=== PATIENT | female | born 1975 | race Caucasian/White ===

== ENCOUNTER → 2020-01-19 09:31 | Outpatient (BNVA) | payer OTHER, SELFPAY | PROVIDERS: Family Provider Nurse Practitioner Family; Visit Provider Nurse Practitioner | DX: F43.12 Post-traumatic stress disorder, chronic (principal) | CPT/HCPCS: 99214 ==

== ENCOUNTER → 2020-04-09 07:38 | Outpatient (BNVA) | payer OTHER, SELFPAY | PROVIDERS: Visit Provider Nurse Practitioner | DX: F43.12 Post-traumatic stress disorder, chronic (principal) | CPT/HCPCS: 99213 ==

== ENCOUNTER → 2020-07-04 09:24 | Outpatient (BNVA) | payer OTHER, SELFPAY | PROVIDERS: Visit Provider Nurse Practitioner | DX: F43.12 Post-traumatic stress disorder, chronic (principal) | CPT/HCPCS: 99213 ==

== ENCOUNTER 2020-08-06 14:54 | Outpatient (CLI) | payer OTHER, SELFPAY ==
--- NOTE | 2020-08-06 15:03 | MM_ITS ---
WS: [id number] BILATERAL SCREENING DIGITAL MAMMOGRAM WITH CAD HISTORY: SCREENING COMPARISON: 07/01/2019, 04/22/2018 Bilateral CC and MLO views submitted. Computer aided detection analyzed. Breast composition: The breasts are heterogeneously dense, which may obscure small masses. No suspici ous masses, microcalcifications or architectural distortion. Soft tissue mass posterior to the LEFT n ipple has been present on multiple prior examinations. No increase in size. No architectural distorti on. MM/[place] [id number] IMPRESSION: BI-RADS: 2-Benign FOLLOW UP: 1 Year Follow-up
== END 2020-08-06 14:55 | disposition home or self-care (01) ==
LOC: RADSHAW 15:00
PROVIDERS: PCP Nurse Practitioner Family; Visit Provider Nurse Practitioner Family
DX: Z12.31 Encounter for screening mammogram for malignant neoplasm of breast (principal)
CPT/HCPCS: 77067

== ENCOUNTER → 2020-10-02 08:00 | Outpatient (BNVA) | payer OTHER, SELFPAY | PROVIDERS: PCP Nurse Practitioner Family; Visit Provider Nurse Practitioner | DX: F43.12 Post-traumatic stress disorder, chronic (principal) | CPT/HCPCS: 99213 ==

== ENCOUNTER → 2020-12-27 09:03 | Outpatient (BNVA) | payer OTHER, SELFPAY | PROVIDERS: PCP Nurse Practitioner Family; Visit Provider Nurse Practitioner | DX: F43.12 Post-traumatic stress disorder, chronic (principal) | CPT/HCPCS: 99214 ==

== ENCOUNTER → 2021-03-21 08:17 | Outpatient (BNVA) | payer OTHER, SELFPAY | PROVIDERS: PCP Nurse Practitioner Family; Visit Provider Nurse Practitioner | DX: F43.12 Post-traumatic stress disorder, chronic (principal) | CPT/HCPCS: 99214 ==

== ENCOUNTER 2021-10-11 08:53 | Outpatient (CLI) | payer OTHER, SELFPAY ==
--- NOTE | 2021-10-11 09:03 | MM_ITS ---
WS: [id number] Bilateral screening digital mammogram, 10/11/2021 Clinical Data: SCREENING Comparison: 08/06/2020, 07/01/2019, 04/22/2018. Findings: The breast parenchymal pattern shows heterogeneous density. No spiculated masses or clustered calcifi cations are seen. There are no secondary signs of carcinoma. There are mole markers on the left breas t. MM/[place] [id number] Impression: 1. Negative bilateral mammogram unchanged. 2. Recommend annual screening mammograms. BIRADS: 1-Negative FOLLOW UP: 1 Year Follow-up The CAD die drawing checker was used.
== END 2021-10-11 08:54 | disposition home or self-care (01) ==
LOC: RADSHAW 08:59
PROVIDERS: PCP Nurse Practitioner Family; Visit Provider Nurse Practitioner Family
DX: Z12.31 Encounter for screening mammogram for malignant neoplasm of breast (principal)
CPT/HCPCS: 77067

== ENCOUNTER 2022-12-11 07:33 | Outpatient (CLI) | payer OTHER, SELFPAY ==
--- NOTE | 2022-12-11 07:50 | MM_ITS ---
WS: [id number] BILATERAL SCREENING DIGITAL TOMOSYNTHESIS MAMMOGRAM WITH CAD HISTORY: SCREENING COMPARISON: 04/22/2018, 11/06/2019, 10/11/2021 Bilateral CC and MLO views with tomosynthesis and synthetic mammography submitted. Computer aided det ection analyzed. Breast composition: The breasts are heterogeneously dense, which may obscure small masses. No suspici ous masses, microcalcifications or architectural distortion. Long-term stable mass at the 6:00 axis i n the anterior breast measures 7 mm. MM/[place] [id number] IMPRESSION: BI-RADS: 2-Benign FOLLOW UP: 1 Year Follow-up
== END 2022-12-11 07:34 | disposition home or self-care (01) ==
PROVIDERS: PCP Nurse Practitioner Family; Visit Provider Nurse Practitioner Family
DX: Z12.31 Encounter for screening mammogram for malignant neoplasm of breast (principal)
CPT/HCPCS: 77063; 77067

== ENCOUNTER 2023-12-24 07:43 | Outpatient (CLI) | payer OTHER, SELFPAY ==
--- NOTE | 2023-12-24 08:36 | MM_ITS ---
WS: [id number] BILATERAL SCREENING DIGITAL TOMOSYNTHESIS MAMMOGRAM WITH CAD HISTORY: SCREENING COMPARISON: 12/11/2022, 08/06/2020, 10/11/2021 Bilateral CC and MLO views with tomosynthesis and synthetic mammography submitted. Computer aided det ection analyzed. Breast composition: The breasts are heterogeneously dense, which may obscure small masses. No suspici ous masses, microcalcifications or architectural distortion. Well-circumscribed mass posterior to the LEFT nipple measures 7 mm. Similar to prior studies. No new or increasing size of any mass. No calci fication. IMPRESSION: MM/[place] [id number] BI-RADS: 2-Benign FOLLOW UP: 1 Year Follow-up
== END 2023-12-24 07:44 | disposition home or self-care (01) ==
LOC: RAD 07:44
PROVIDERS: PCP Nurse Practitioner Family; Visit Provider Nurse Practitioner Family
DX: Z12.31 Encounter for screening mammogram for malignant neoplasm of breast (principal)
CPT/HCPCS: 77063; 77067

== ENCOUNTER 2024-07-04 11:25 | Emergency (ER) | payer OTHER, SELFPAY ==
--- NOTE | 2024-07-04 11:31 | ECG_ITS ---
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 Measurements Intervals [place] Rate: 86 P: 72 [place]: 148 QRS: 78 QRSD: 87 T: 80 QT: 391 QTc: 468 Interpretive Statements SINUS RHYTHM POSSIBLE LEFT ATRIAL ENLARGEMENT [-0.1mV P-WAVE IN V1/V2] No previous ECG available for comparison Electronically Signed On 07-05-2024 7:44:40 CDT by Maicol Atkinson M.D. [id number] f
[2024-07-04 11:33] VITALS: BP 130/85; PULSE 83; TEMP 36.6; O2SAT 96; BMI 22.6
--- NOTE | 2024-07-04 11:43 | XR_ITS ---
WS: [id number] XR chest 1V portable [id number] REASON FOR EXAM: cp FINDINGS: Chest is unchanged compared to 08/17/2012. The heart and mediastinum are within normal limits. Calcified granulomas disease bilaterally. No acute pulmonary parenchymal or pleural abnormality. Bony thorax is intact without significant abnormality. XR/XR chest 1V portable [id number] IMPRESSION: Stable chest without acute abnormality.
--- NOTE | 2024-07-04 12:08 | W.ED.CHESTPA ---
HPI - Chest Pain General: Chief Complaint: Chest Pain Stated Complaint: chest pains and sob Time Seen by Provider: 07/04/24 12:06 History of Present Illness: 49-year-old female presents emergency room clinic chest pain shortness of breath began last night. Presents today epigastric left lower chest region. She has been having chest pain on little higher up she definitely seen . They thought it might be something related to her breast and scheduled mammogram. This seems a little bit different does radiate into her back. She denies any history of reflux she previously had as an appetite back to me but no other abdominal issues or previous abdominal surgeries no hematochezia melena hematemesis coffee-ground emesis Associated symptoms: Reports dyspnea; Deny abdominal pain or fever(s) Related Data Home Medications Medication Instructions Recorded Confirmed solifenacin 5 mg tablet 5 mg PO DAILY 03/17/24 07/04/24 ergocalciferol (vitamin D2) 1,250 1,250 mcg PO Q7D 07/04/24 07/04/24 mcg (50,000 unit) capsule mirtazapine 45 mg tablet 45 mg PO BEDTIME 07/04/24 07/04/24 oxybutynin chloride 10 mg 10 mg PO BID 07/04/24 07/04/24 tablet,extended release 24 hr Previous Rx's Medication Instructions Recorded bupropion HCl 300 mg 24 hr tablet, 300 mg PO QAM #30 tabs 03/17/24 extended release (Wellbutrin XL) pantoprazole 40 mg tablet,delayed 40 mg PO BID 30 days #60 tabs 07/04/24 release (Protonix) Allergies Allergy/AdvReac Type Severity Reaction Status Date / Time diphenhydramine Allergy rash Verified 07/04/24 11:37 [From Triaminic Allergy] latex Allergy ALGY-Rash Verified 07/04/24 11:37 Review of Systems Const: Denies: fever(s) or chills Card: Reports: chest pain Resp: Reports: dyspnea GI: Denies: abdominal pain : Denies: dysuria, urinary frequency or urinary urgency Musc: Denies: neck pain or back pain Skin/Breast: Denies: rash PFSH ED PFSH: Medical History Psychiatric care Post-traumatic stress disorder, chronic Social History Smoking and tobacco/nicotine status: former use of tobacco/nicotine Physical Exam Const: COMMON NORMALS: no acute distress GENERAL APPEARANCE: cooperative and comfortable ORIENTATION/CONSCIOUSNESS: Yes awake, Yes oriented to person, Yes oriented to place and Yes oriented to time HENMT: COMMON NORMALS: normocephalic, atraumatic and hearing grossly normal bilaterally HEAD & SCALP: normocephalic and atraumatic Resp: COMMON NORMALS: normal respiratory effort, No retractions, No use of accessory muscles and clear to auscultation bilaterally AUSCULTATION: clear to auscultation bilaterally Cardio: COMMON NORMALS: regular rate, regular rhythm and No murmurs present (Cardio) RATE: regular rate RHYTHM: regular rhythm GI: COMMON NORMALS: Soft to palpation and No hepatosplenomegaly present AUSCULTATION: Yes normoactive bowel sounds PALPATION: Yes Soft to palpation, No Tenderness to palpation present (GI), No Guarding due to palpation present (GI) and Yes No hepatosplenomegaly present Extremity: COMMON NORMALS: normal to inspection, capillary refill normal, no clubbing, cyanosis or edema, no calf tenderness and no pedal edema Neuro: SENSORIUM/ORIENTATION: Yes oriented to person, Yes oriented to place and Yes oriented to time Skin: COMMON NORMALS: no rashes or lesions noted GENERAL SKIN EXAM: no rashes or lesions noted Course Vital Signs: Vital signs: Vital Signs Temperature 97.8 F 07/04/24 11:33 Pulse Rate 67 07/04/24 16:42 Blood Pressure 99/59 07/04/24 16:42 Pulse Oximetry 98 07/04/24 16:42 Oxygen Delivery Me thod Room Air 07/04/24 15:57 MDM - Chest Pain Medical Decision Making Cardiac enzymes are negative. EKG is unremarkable no acute changes CTA of the chest did not show any pneumothorax pneumonia pulmonary embolism aortic aneurysm. Discharge patient home CT did show a hiatal hernia I think she is getting reflux esophageal spasm causing her pain started on Protonix 40 twice daily for a week and then 40 daily have her follow-up with primary care doctor if has persistent symptoms may need referral for EGD Medical Records I reviewed the patient's medical records. Lab Data I reviewed the patient's lab results. 07/04/24 12:01 07/04/24 12:01 Radiology Impressions Chest X-Ray 07/04/24 11:43 IMPRESSION: Stable chest without acute abnormality. Chest CTA 07/04/24 15:16 IMPRESSION: 1. No evidence of pulmonary embolism. 2. No acute findings in the chest. 3. Patulous esophagus with a small hiatal hernia. Findings can be seen with gastroesophageal reflux and/or esophageal dysmotility. Laboratory Results WBC 9.38 10^3/uL (3.29-11.43) 07/04/24 12:01 RBC 4.41 10^6/uL (3.85-5.65) 07/04/24 12:01 Hgb 12.40 g/dL (11.27-16.99) 07/04/24 12:01 Hct 37.3 % (36-47) 07/04/24 12:01 MCV 84.6 fl (85-98) L 07/04/24 12:01 MCH 28.1 pg (27-33) 07/04/24 12:01 MCHC 33.2 g/dL (30-55) 07/04/24 12:01 RDW 12.4 % (12.1-15.1) 07/04/24 12:01 Plt Count 335 10^3/cmm (157-399) 07/04/24 12:01 MPV 10.3 fL (7.4-10.4) 07/04/24 12:01 Neut % (Auto) 58.0 % 07/04/24 12:01 Lymph % (Auto) 33.2 % 07/04/24 12:01 [place] % (Auto) 7.1 % 07/04/24 12:01 Eos % (Auto) 0.9 % 07/04/24 12:01 Baso % (Auto) 0.4 % 07/04/24 12:01 Neut # (Auto) 5.44 10^3/uL (1.8-7.7) 07/04/24 12:01 Lymph # (Auto) 3.1 10^3/uL (0.8-4.8) 07/04/24 12:01 [place] # (Auto) 0.7 10^3/uL (0.2-0.9) 07/04/24 12:01 Eos # (Auto) 0.1 10^3/uL (0.0-0.8) 07/04/24 12:01 Baso # (Auto) 0.0 10^3/uL (0.0-0.1) 07/04/24 12:01 Nucleated RBC % (auto) 0 % 07/04/24 12:01 Nucleated RBCs # 0.0 /100WBC 07/04/24 12:01 PT 13.20 SECONDS (12.1-14.9) 07/04/24 12:01 INR 0.97 (0.8-1.2) 07/04/24 12:01 Sodium 138 mmol/L (136-145) 07/04/24 12:01 Potassium 4.1 mmol/L (3.5-5.1) 07/04/24 12:01 Chloride 104 mmol/L (98-107) 07/04/24 12:01 Carbon Dioxide 23 mmol/L (22-29) 07/04/24 12:01 Anion Gap 15.1 (5-19) 07/04/24 12:01 BUN 12 mg/dL (6-20) 07/04/24 12:01 Creatinine 0.7 mg/dL (0.5-0.9) 07/04/24 12:01 GFR Calculation 89.3 mL/min (90-130) L 07/04/24 12:01 Glucose 129 mg/dL (65-115) H 07/04/24 12:01 Calculated Osmolality 287 mOsm/kg (285-295) 07/04/24 12:01 Calcium 8.8 mg/dL (8.5-10.5) 07/04/24 12:01 Total Bilirubin 0.2 mg/dL (0.15-1.2) 07/04/24 12:01 AST 14 U/L (0-32) 07/04/24 12:01 ALT 11 U/L (0-33) 07/04/24 12:01 Alkaline Phosphatase 86 U/L (35-105) 07/04/24 12:01 Troponin T Baseline < 6 ng/L (0-10) 07/04/24 12:01 Troponin T 120 Minute 6.00 ng/L (0-10) 07/04/24 13:54 Delta Troponin T 0.38725 ABS# (0-10) 07/04/24 13:54 Total Protein 7.0 g/dL (6.6-8.7) 07/04/24 12:01 Albumin 4.2 g/dL (3.5-5.2) 07/04/24 12:01 Globulin 2.8 g/dL (1.3-4.6) 07/04/24 12:01 Lipase 25 U/L (13-60) 07/04/24 12:01 All radiology interpretation(s) finalized by discharge Clincial Decision Support The following clinical decision support tools were used to aid in care of the patient HEART Score -> History: Slightly Suspicous, EKG: Normal, Age: 45-64 yrs, Risk Factors: No Risk Factors Known, Troponin: Baseline Trop <16 ng/L. Resulting HEART Score: 1. Discharge Plan Discharge Patient Disposition: Home Clinical Impression: Atypical chest pain, Chest pain due to gastrointestinal reflux disease, Hernia, hiatal Condition: Stable Prescriptions: New Protonix 40 mg tablet,delayed release (DR/EC) 40 mg PO BID 30 Days Qty: 60 0RF No Action solifenacin 5 mg tablet 5 mg PO DAILY bupropion HCl [Wellbutrin XL] 300 mg tablet extended release 24 hr 300 mg PO QAM Qty: 30 5RF oxybutynin chloride 10 mg tablet extended release 24hr 10 mg PO BID ergocalciferol (vitamin D2) 1,250 mcg (50,000 unit) capsule 1,250 mcg PO Q7D Rx Instructions: on Thursday mirtazapine 45 mg tablet 45 mg PO BEDTIME Discharge Orders: Discharge ED (Routine); Ordered 07/04/24 Ordered By: Marlon Sidhu Referrals: Leeanne Duarte FNP [Primary Care Provider] - Discharge Diet: Usual diet Discharge Activity: Resume usual activity Patient Instructions: Hiatal Hernia (ED), Diet for Stomach Ulcers and Gastritis (ED), GERD (Gastroesophageal Reflux Disease) (ED), Opioid Safety, Pain Management Activity Restrictions/Additional Instructions: Thank you for choosing [facility] for your healthcare needs today. It is very important that you follow up as instructed or that you return to the Emergency Department should you have concerns or if your condition changes or worsens in any way. You were seen in the emergency room for complaints of chest discomfort off and on. Your cardiac enzymes and EKG were normal CT of your chest for pulmonary embolism was normal. Suspect your chest discomfort is coming from your hiatal hernia and reflux recommend you start on pantoprazole. Follow-up with your primary care doctor if your symptoms persist you may need EGD. 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
[2024-07-04 12:09] LABS: Basophils % 0.4 %; Eosinophils # 0.1 10^3/uL (0.0-0.8); Eosinophils % 0.9 %; Hematocrit 37.3 % (36-47); Lymphocytes # 3.1 10^3/uL (0.8-4.8); Lymphocytes % 33.2 %; Mean Corpuscular HGB Conc 33.2 g/dL (30-55); Mean Corpuscular Hemoglobin 28.1 pg (27-33); Mean Corpuscular Volume 84.6 fl (85-98); Mean Platelet Volume 10.3 fL (7.4-10.4); Monocytes # 0.7 10^3/uL (0.2-0.9); Monocytes % 7.1 %; Neutrophils # 5.44 10^3/uL (1.8-7.7); Nucleated Red Blood Cells % 0 %; Platelet Count 335 10^3/cmm (157-399); Red Blood Count 4.41 10^6/uL (3.85-5.65); Red Cell Distribution Width 12.4 % (12.1-15.1); White Blood Count 9.38 10^3/uL (3.29-11.43)
[2024-07-04 12:19] LABS: INR 0.97 (0.8-1.2)
[2024-07-04 12:24] LABS: Troponin(5th) Baseline < 6 ng/L (0-10)
--- NOTE | 2024-07-04 12:29 | PC.PHAR ---
Pt states hasn't taken Lorazepam in a couple years-removed from pt chart.
[2024-07-04 12:33] LABS: Alanine Aminotransferase 11 U/L (0-33); Albumin Level 4.2 g/dL (3.5-5.2); Alkaline Phosphatase 86 U/L (35-105); Anion Gap 15.1 (5-19); Aspartate Amino Transferase 14 U/L (0-32); Blood Urea Nitrogen 12 mg/dL (6-20); Calcium 8.8 mg/dL (8.5-10.5); Carbon Dioxide 23 mmol/L (22-29); Chloride 104 mmol/L (98-107); Creatinine Clr Calc Pharmacy 94.6177; Globulin 2.8 g/dL (1.3-4.6); Glomerular Filtration Rate 89.3 mL/min (90-130); Glucose 129 mg/dL (65-115); Lipase 25 U/L (13-60); Osmolality Calculated 287 mOsm/kg (285-295); Potassium 4.1 mmol/L (3.5-5.1); Sodium 138 mmol/L (136-145); Total Bilirubin 0.2 mg/dL (0.15-1.2)
[2024-07-04 12:44] VITALS: BP 121/85; PULSE 78; O2SAT 97
--- NOTE | 2024-07-04 13:40 | ECG_ITS ---
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 Measurements Intervals [place] Rate: 68 P: 68 DE: 158 QRS: 74 QRSD: 89 T: 81 QT: 412 QTc: 441 Interpretive Statements SINUS RHYTHM Compared to ECG 07/04/2024 11:31:41 No significant changes Electronically Signed On 07-05-2024 7:50:22 CDT by Maicol Atkinson M.D. [id number]
[2024-07-04 14:06] VITALS: BP 118/76; PULSE 72; O2SAT 97
[2024-07-04 14:47] LABS: Troponin 5 2HR Delta 0.00001 ABS# (0-10)
--- NOTE | 2024-07-04 15:16 | CTR_ITS ---
PROCEDURE INFORMATION: Exam: CTA Chest With Contrast Exam date and time: 07/04/2024 3:55 PM Age: 49 years old Clinical indication: Angina; Additional info: Chest pain dyspnea TECHNIQUE: Imaging protocol: Computed tomographic angiography of the chest with contrast. Exam focused on the arteries. 3D rendering (Not supervised by radiologist): MIP and/or 3D reconstructed images were created by the technologist. Radiation optimization: All CT scans at this facility use at least one of these dose optimization techniques: automated exposure control; mA and/or kV adjustment per patient size (includes targeted exams where dose is matched to clinical indication); or iterative reconstruction. Contrast material: OMNI 350; Contrast volume: 100 ml; Contrast route: INTRAVENOUS (IV); COMPARISON: CR XR chest 1V portable [id number] 07/04/2024 11:51 AM RADIATION DOSE METRICS: Total DLP (mGy-cm): 248 FINDINGS: Pulmonary arteries: Normal. No pulmonary emboli. Aorta: Unremarkable. No aortic aneurysm. No aortic dissection. Lungs: No consolidation. No masses. Mild biapical pleural/parenchymal scarring. Pleural spaces: Unremarkable. No pneumothorax. No pleural effusion. Heart: Unremarkable. No cardiomegaly. No pericardial effusion. Esophagus: Patulous thoracic esophagus with a small hiatal hernia. Lymph nodes: Unremarkable. No enlarged lymph nodes. Bones/joints: Unremarkable. No acute fracture. Soft tissues: Unremarkable. CT/CT angio chest PE protcl [id number] IMPRESSION: 1. No evidence of pulmonary embolism. 2. No acute findings in the chest. 3. Patulous esophagus with a small hiatal hernia. Findings can be seen with gastroesophageal reflux and/or esophageal dysmotility.
[2024-07-04 15:57] VITALS: BP 119/94; PULSE 72; O2SAT 97
[2024-07-04] MEDS: iohexol 350 mg/mL 500 mL Btl (per mL) IV (15:58)
[2024-07-04 16:42] VITALS: BP 99/59; PULSE 67; O2SAT 98
== END 2024-07-04 16:42 | disposition home or self-care (01) ==
PROVIDERS: Emergency Medicine; Emergency Provider Family Medicine; PCP Nurse Practitioner Family
DX: R07.89 Other chest pain (principal); K21.9 Gastro-esophageal reflux disease without esophagitis; K44.9 Diaphragmatic hernia without obstruction or gangrene; Z87.891 Personal history of nicotine dependence
CPT/HCPCS: 36415; 71045; 71275; 80053; 83690; 84484; 85025; 85610; 93005; 99285

== ENCOUNTER 2024-07-07 08:38 | Outpatient (CLI) | payer OTHER, SELFPAY ==
--- NOTE | 2024-07-07 08:44 | US_ITS ---
WS: [id number] BILATERAL 3D TOMOSYNTHESIS DIGITAL DIAGNOSTIC MAMMOGRAPHY WITH CAD CLINICAL INFORMATION: BILAT NIPPLE DISCHARGE HISTORY: Bilateral nipple discharge COMPARISON: 12/24/2023 TECHNIQUE: Bilateral CC, MLO, and ML views. FINDINGS: The breasts are composed of heterogeneous fibroglandular density, which can limit the detection of sm all underlying mass lesions. Small subareolar nodule LEFT breast unchanged compared to 202. Ultrasou nd of this area is pending. No other new abnormalities. Ultrasound of the areas of concern bilaterally pending. ULTRASOUND BREAST BILATERAL TECHNIQUE: Ultrasound bilateral breast focused area of concern. CLINICAL INFORMATION: BILAT NIPPLE DISCHARGE FINDINGS: RIGHT BREAST: Ultrasound RIGHT breast area of concern. No suspicious abnormalities in the RIGHT breas t. LEFT BREAST: Ultrasound LEFT breast area of concern. Hypoechoic nodule LEFT breast area of concern 6: 00 1 cm from the nipple measuring 7 x 7 x 6 mm. This may represent a complex cyst but technically ind eterminate. Recommend further evaluation with ultrasound-guided biopsy/aspiration. Additional hypoechoic nodule subareolar LEFT breast measuring 4 x 5 x 4 mm appears to represent a sim ple cyst. US/US breast BI complete [id number] IMPRESSION: DENSITY: The breasts are heterogeneously dense, which may obscure small masses. BI-RADS: 0 - Incomplete: Need additional imaging evaluation FOLLOW UP: US Guided Biopsy Recommended Recommend ultrasound-guided biopsy/aspiration of the ovoid complex lesion 6 o'c lock position LEFT breast 1 cm from the nipple.
--- NOTE | 2024-07-07 08:52 | MM_ITS ---
WS: [id number] BILATERAL 3D TOMOSYNTHESIS DIGITAL DIAGNOSTIC MAMMOGRAPHY WITH CAD CLINICAL INFORMATION: BILAT NIPPLE DISCHARGE HISTORY: Bilateral nipple discharge COMPARISON: 12/24/2023 TECHNIQUE: Bilateral CC, MLO, and ML views. FINDINGS: The breasts are composed of heterogeneous fibroglandular density, which can limit the detection of sm all underlying mass lesions. Small subareolar nodule LEFT breast unchanged compared to 202. Ultrasou nd of this area is pending. No other new abnormalities. Ultrasound of the areas of concern bilaterally pending. ULTRASOUND BREAST BILATERAL TECHNIQUE: Ultrasound bilateral breast focused area of concern. CLINICAL INFORMATION: BILAT NIPPLE DISCHARGE FINDINGS: RIGHT BREAST: Ultrasound RIGHT breast area of concern. No suspicious abnormalities in the RIGHT breas t. LEFT BREAST: Ultrasound LEFT breast area of concern. Hypoechoic nodule LEFT breast area of concern 6: 00 1 cm from the nipple measuring 7 x 7 x 6 mm. This may represent a complex cyst but technically ind eterminate. Recommend further evaluation with ultrasound-guided biopsy/aspiration. Additional hypoechoic nodule subareolar LEFT breast measuring 4 x 5 x 4 mm appears to represent a sim ple cyst. MM/[place] [id number] IMPRESSION: DENSITY: The breasts are heterogeneously dense, which may obscure small masses. BI-RADS: 0 - Incomplete: Need additional imaging evaluation FOLLOW UP: US Guided Biopsy Recommended Recommend ultrasound-guided biopsy/aspiration of the ovoid complex lesion 6 o'c lock position LEFT breast 1 cm from the nipple.
== END 2024-07-07 08:39 | disposition home or self-care (01) ==
LOC: RAD 08:38
PROVIDERS: PCP Nurse Practitioner Family; Visit Provider Nurse Practitioner Family
DX: N63.24 Unspecified lump in the left breast, lower inner quadrant (principal); N63.42 Unspecified lump in left breast, subareolar; R92.333 Mammographic heterogeneous density, bilateral breasts; N64.4 Mastodynia; N64.52 Nipple discharge
CPT/HCPCS: 76641; 77062; G0279

== ENCOUNTER 2024-07-27 12:42 | Outpatient (CLI) | payer OTHER, SELFPAY ==
--- NOTE | 2024-07-27 12:46 | US_ITS ---
WS: [id number] ULTRASOUND-GUIDED LEFT BREAST BIOPSY CLINICAL INFORMATION: L BREAST ABNORMAL MAMMOGRAM COMPARISON: Ultrasound 07/07/2024 FINDINGS: The procedure including risks, benefits, and complications were discussed with the patient who agreed to proceed. Using sterile technique patient was prepped and draped in the usual sterile fashion. Aft er 1% lidocaine utilizing real-time ultrasound guidance 5 14-gauge cores were obtained of the LEFT br east lesion at the 6 o'clock position 1 cm from the nipple. Subsequently a titanium clip was placed i n the biopsy cavity. No immediate complications. Pathology demonstrates fibroadenoma. Negative for malignancy. US/[place] [id number] IMPRESSION: 1. Uncomplicated ultrasound-guided LEFT breast biopsy. 2. The pathology demonstrates fibroadenoma. Negative for malignancy. DENSITY: The breasts are heterogeneously dense, which may obscure small masses. BI-RADS: 2 - Benign FOLLOW UP: 1 Year Follow-up
== END 2024-07-27 12:43 | disposition home or self-care (01) ==
LOC: RAD 12:42
PROVIDERS: PCP Nurse Practitioner Family; Visit Provider Nurse Practitioner Family
DX: N60.22 Fibroadenosis of left breast (principal); R92.8 Other abnormal and inconclusive findings on diagnostic imaging of breast
CPT/HCPCS: 19083; 88305

== ENCOUNTER 2025-09-26 17:00 | Outpatient (CLI) | payer OTHER, SELFPAY ==
--- NOTE | 2025-09-26 17:05 | XRR_ITS ---
PROCEDURE INFORMATION: Exam: XR Right Foot Exam date and time: 09/26/2025 5:15 PM Age: 50 years old Clinical indication: Injury or trauma; Other: Stubbed toe; Blunt trauma; Foot; Right; Injury date: 2 weeks ago; Injury details: X2 weeks stubbed 1st digit, worsening pain; Prior surgery; Surgery date: 6+ months; Surgery type: Toenail removal; Additional info: Great toe pain TECHNIQUE: Imaging protocol: Radiologic exam of the right foot. Views: 3 or more views. COMPARISON: No relevant prior studies available. FINDINGS: Bones/joints: No acute fracture or dislocation. Small posterior calcaneal enthesophyte along the Achilles insertion. Soft tissues: Normal. XR/XR foot RT min 3V* [id number] IMPRESSION: No acute osseous findings.
== END 2025-09-26 17:01 | disposition home or self-care (01) ==
LOC: RAD 17:01
PROVIDERS: PCP Nurse Practitioner Family; Visit Provider Family Medicine
DX: M79.674 Pain in right toe(s) (principal); S90.931D Unspecified superficial injury of right great toe, subsequent encounter; X58.XXXD Exposure to other specified factors, subsequent encounter; M77.51 Other enthesopathy of right foot and ankle
CPT/HCPCS: 73630